=== PATIENT | female | born 1980 ===

== ENCOUNTER 2019-01-22 18:27 | Observation (INO) ==
[2019-01-22] MEDS ORDERED: Piperacillin/Tazobactam 3.375 GM in 0.9 % Sodium Chloride Mini Bag 100 ML IVPB ONE (19:46)
[2019-01-22] MEDS ORDERED: Tdap (Boostrix) Vaccine 0.5 ML SYRINGE IM ONE (19:58)
[2019-01-22 20:25] LABS: Basophils % 0.3 %; Eosinophils # 0.2 K/mcL (0.0-0.6); Eosinophils % 1.2 %; Hematocrit 38.6 % (35.3-44.9); Hemoglobin 12.4 g/dL (11.5-15.4); Immature Granulocytes % 0.2 % (0-4); Lymphocytes # 3.1 K/mcL (0.6-4.6); Mean Corpuscular HGB Conc 32.1 g/dL (31.6-35.5); Mean Corpuscular Hemoglobin 28.2 pg (28.0-33.3); Mean Corpuscular Volume 87.7 fL (83.0-100.0); Mean Platelet Volume 9.7 fL (9.4-12.4); Monocytes # 0.7 K/mcL (0.0-1.3); Monocytes % 5.6 %; Neutrophils # 8.4 K/mcL (1.6-8.9); Platelet Count 464 K/mcL (140-400); Segmented Neutrophils % 67.7 %; White Blood Count 12.4 K/mcL (4.3-11.1)
[2019-01-22 20:43] LABS: BUN/Creatinine Ratio 16 (6-26); Blood Urea Nitrogen 11 mg/dL (6-20); C-Reactive Protein 44 mg/L (Less than 10); Calcium 9.3 mg/dL (8.6-10.3); Carbon Dioxide 25 mEq/L (23-29); Chloride 107 mEq/L (98-107); Glucose 61 mg/dL (70-105); Osmolality,Calculated 287 (280-300); Potassium 3.2 mEq/L (3.5-5.1); Sodium 140 mEq/L (136-145); eGFR For African Americans > 60 (> 60); eGFR For Non-African Americans > 60 (> 60)
[2019-01-22] MEDS ORDERED: Naloxone 0.4 MG/ML INJ IVP PRN (22:44)
[2019-01-22] MEDS ORDERED: Ringers Solution, Lactated 1,000 ML IVC SCH (22:45)
[2019-01-22] MEDS ORDERED: Potassium Chloride Elixir 20 MEQ/15 ML UDC PO ONE (22:52)
[2019-01-22] MEDS ORDERED: Nicotine 14 MG PATCH.TD24 TD SCH (23:00)
[2019-01-22 23:15] LABS: Estimated Average Glucose 123 mg/dl
[2019-01-23 07:48] LABS: INR 0.9; Prothrombin Time 10.6 Seconds (9.4-12.1)
[2019-01-23 07:53] LABS: Basophils % 0.4 %; Eosinophils # 0.2 K/mcL (0.0-0.6); Eosinophils % 2.4 %; Hematocrit 32.9 % (35.3-44.9); Immature Granulocytes % 0.2 % (0-4); Lymphocytes # 3.6 K/mcL (0.6-4.6); Lymphocytes % 39.1 %; Mean Corpuscular HGB Conc 32.2 g/dL (31.6-35.5); Mean Corpuscular Hemoglobin 28.2 pg (28.0-33.3); Mean Corpuscular Volume 87.5 fL (83.0-100.0); Mean Platelet Volume 10.4 fL (9.4-12.4); Monocytes # 0.5 K/mcL (0.0-1.3); Neutrophils # 4.8 K/mcL (1.6-8.9); Platelet Count 424 K/mcL (140-400); Red Blood Count 3.76 M/mcL (3.82-4.97); Red Cell Distribution Width 17.2 % (11.5-14.5); Segmented Neutrophils % 52.9 %; White Blood Count 9.2 K/mcL (4.3-11.1)
[2019-01-23 07:59] LABS: BUN/Creatinine Ratio 16 (6-26); Blood Urea Nitrogen 11 mg/dL (6-20); Calcium 8.8 mg/dL (8.6-10.3); Carbon Dioxide 23 mEq/L (23-29); Chloride 110 mEq/L (98-107); Glucose 80 mg/dL (70-105); Magnesium 1.6 mg/dL (1.6-2.6); Osmolality,Calculated 288 (280-300); Potassium 3.7 mEq/L (3.5-5.1); Sodium 140 mEq/L (136-145); eGFR For African Americans > 60 (> 60); eGFR For Non-African Americans > 60 (> 60)
[2019-01-23 08:04] LABS: Hemoglobin 10.6 g/dL (11.5-15.4)
[2019-01-23] MEDS ORDERED: *HR* HYDROmorphone (PF) 1 MG/ML SYRINGE IVP ONE (08:29)
[2019-01-23] MEDS: Piperacillin/Tazobactam 3.375 GM in 0.9 % Sodium Chloride Mini Bag 100 ML IVPB SCH ×3 (08:46→23:12)
[2019-01-23] MEDS ORDERED: Ringers Solution, Lactated 1,000 ML IVC SCH (09:45)
[2019-01-23] MEDS ORDERED: *HR* OxyCODONE/APAP 5/325 TABLET PO SCH (10:00)
[2019-01-23] MEDS ORDERED: Ketorolac 30 MG/ML VIAL IVP SCH (13:00)
[2019-01-23 13:34] LABS: Amphetamine Screen,Urine Negative ng/mL (Cutoff=1000); Barbiturate Screen,Urine Negative ng/mL (Cutoff=200); Benzodiazepines Screen,Urine Positive ng/mL (Cutoff=200); Cannabinoid Screen,Urine Negative ng/mL (Cutoff = 50); Cocaine Screen,Urine Negative ng/mL (Cutoff= 300); Opiate Screen,Urine Positive ng/mL (Cutoff=300); Phencyclidine Screen,Urine Negative ng/mL (Cutoff=25)
[2019-01-23] MEDS ORDERED: *HR* OxyCODONE Immed Rel 5 MG TABLET PO PRN (16:37)
[2019-01-23] MEDS ORDERED: Ondansetron 4 MG/2 ML VIAL IVP ONE ×2 (16:37→18:43)
[2019-01-23] MEDS ORDERED: *HR* HYDROmorphone (PF) 1 MG/ML SYRINGE IVP PRN ×2 (16:37→18:43)
[2019-01-23] MEDS ORDERED: Albuterol 2.5 MG/3 ML NEBULIZER IH ONE (16:38)
[2019-01-23] MEDS ORDERED: Albuterol 2.5 MG/3 ML NEBULIZER ONE (16:42)
[2019-01-23] MEDS ORDERED: *HR* FentaNYL (PF) 100 MCG/2 ML VIAL ONE (16:46)
[2019-01-23] MEDS ORDERED: *HR* Midazolam HCl 2 MG/2 ML VIAL ONE (16:46)
[2019-01-23] MEDS ORDERED: *HR* Propofol 200 MG/20 ML VIAL IVP ONE (16:46)
[2019-01-23] MEDS ORDERED: Ondansetron 4 MG/2 ML VIAL ONE (16:49)
[2019-01-23] MEDS ORDERED: Lidocaine -MPF 2% 2 ML VIAL ONE (16:49)
[2019-01-23] MEDS ORDERED: Vancomycin 1,000 MG VIAL ONE (17:24)
[2019-01-23] MEDS ORDERED: Dexamethasone 4 MG/ML VIAL ONE (17:36)
[2019-01-23] MEDS ORDERED: Ketorolac 30 MG/ML VIAL ONE (17:54)
[2019-01-23] MEDS ORDERED: Naloxone 0.4 MG/ML INJ IVP PRN (18:43)
[2019-01-23] MEDS ORDERED: *HR* Heparin 5,000 UNIT/ML VIAL SQ SCH (21:00)
[2019-01-23] MEDS: *HR* Heparin 5,000 UNIT/ML VIAL SQ SCH ×2 (21:29→21:31)
[2019-01-23] MEDS: Ketorolac 30 MG/ML VIAL IVP SCH (21:29)
[2019-01-23] MEDS: Nicotine 14 MG PATCH.TD24 TD SCH (23:14)
[2019-01-24] MEDS ORDERED: Ketorolac 30 MG/ML VIAL IVP SCH
[2019-01-24] MEDS ORDERED: Acetaminophen IV 500 MG/50 ML INFUS..BTL IVPB ONE (01:26)
[2019-01-24] MEDS: Ketorolac 30 MG/ML VIAL IVP SCH ×4 (03:44→20:07)
[2019-01-24 04:44] LABS: Basophils % 0.1 %; Hematocrit 31.9 % (35.3-44.9); Hemoglobin 10.3 g/dL (11.5-15.4); Immature Granulocytes % 0.4 % (0-4); Lymphocytes # 1.2 K/mcL (0.6-4.6); Lymphocytes % 10.1 %; Mean Corpuscular HGB Conc 32.3 g/dL (31.6-35.5); Mean Corpuscular Hemoglobin 28.3 pg (28.0-33.3); Mean Corpuscular Volume 87.6 fL (83.0-100.0); Mean Platelet Volume 10.4 fL (9.4-12.4); Monocytes # 0.4 K/mcL (0.0-1.3); Neutrophils # 10.2 K/mcL (1.6-8.9); Platelet Count 411 K/mcL (140-400); Red Blood Count 3.64 M/mcL (3.82-4.97); Red Cell Distribution Width 16.4 % (11.5-14.5); Segmented Neutrophils % 86.4 %; White Blood Count 11.8 K/mcL (4.3-11.1)
[2019-01-24] MEDS: *HR* Heparin 5,000 UNIT/ML VIAL SQ SCH ×3 (04:57→20:07)
[2019-01-24 05:04] LABS: BUN/Creatinine Ratio 15 (6-26); Blood Urea Nitrogen 8 mg/dL (6-20); Calcium 8.7 mg/dL (8.6-10.3); Carbon Dioxide 24 mEq/L (23-29); Chloride 109 mEq/L (98-107); Glucose 153 mg/dL (70-105); Osmolality,Calculated 289 (280-300); Potassium 3.7 mEq/L (3.5-5.1); Sodium 139 mEq/L (136-145); eGFR For African Americans > 60 (> 60); eGFR For Non-African Americans > 60 (> 60)
[2019-01-24] MEDS: Piperacillin/Tazobactam 3.375 GM in 0.9 % Sodium Chloride Mini Bag 100 ML IVPB SCH ×3 (08:48→23:38)
[2019-01-24] MEDS: Ringers Solution, Lactated 1,000 ML IVC SCH ×2 (10:27→23:39)
[2019-01-24] MEDS: Nicotine 14 MG PATCH.TD24 TD SCH (23:38)
[2019-01-25] MEDS: Ketorolac 30 MG/ML VIAL IVP SCH ×2 (02:33→09:34)
[2019-01-25 04:24] LABS: Basophils # 0.1 K/mcL (0.0-0.2); Basophils % 0.5 %; Eosinophils # 0.2 K/mcL (0.0-0.6); Hemoglobin 10.7 g/dL (11.5-15.4); Immature Granulocytes % 0.3 % (0-4); Lymphocytes # 5.2 K/mcL (0.6-4.6); Lymphocytes % 46.9 %; Mean Corpuscular HGB Conc 32.4 g/dL (31.6-35.5); Mean Corpuscular Hemoglobin 28.4 pg (28.0-33.3); Mean Corpuscular Volume 87.5 fL (83.0-100.0); Mean Platelet Volume 9.6 fL (9.4-12.4); Monocytes # 0.4 K/mcL (0.0-1.3); Monocytes % 3.7 %; Neutrophils # 5.2 K/mcL (1.6-8.9); Platelet Count 383 K/mcL (140-400); Red Blood Count 3.77 M/mcL (3.82-4.97); Red Cell Distribution Width 16.8 % (11.5-14.5); Segmented Neutrophils % 46.6 %
[2019-01-25 04:44] LABS: BUN/Creatinine Ratio 15 (6-26); Blood Urea Nitrogen 11 mg/dL (6-20); Calcium 8.6 mg/dL (8.6-10.3); Carbon Dioxide 24 mEq/L (23-29); Chloride 105 mEq/L (98-107); Glucose 93 mg/dL (70-105); Osmolality,Calculated 289 (280-300); Potassium 3.6 mEq/L (3.5-5.1); Sodium 140 mEq/L (136-145); eGFR For African Americans > 60 (> 60); eGFR For Non-African Americans > 60 (> 60)
[2019-01-25] MEDS: *HR* Heparin 5,000 UNIT/ML VIAL SQ SCH (05:32)
[2019-01-25 06:29] VITALS: BP 131/79
[2019-01-25] MEDS: Piperacillin/Tazobactam 3.375 GM in 0.9 % Sodium Chloride Mini Bag 100 ML IVPB SCH (08:13)
[2019-01-25] MEDS ORDERED: Aminoglycoside Consult 1 EACH MC ONE (14:09)
[2019-01-25] MEDS ORDERED: metroNIDAZOLE 500 MG TABLET PO SCH (15:00)
== END 2019-01-25 14:10 | disposition home or self-care (01) ==
LOC: 3NENU 18:27 → EMEROOARM 18:27 → SUATTDRO 20:34 → 3NENU 20:56
PROVIDERS: ADMIT Family Medicine; ATTEND Internal Medicine

== ENCOUNTER 2019-04-09 13:29 | Inpatient (IN) ==
[2019-04-09] MEDS ORDERED: Morphine Sulfate 2 MG/ML SYRINGE IVP ONE (17:43)
[2019-04-09 18:25] LABS: Hematocrit 33.8 % (35.3-44.9); Hemoglobin 11.4 g/dL (11.5-15.4); Mean Corpuscular HGB Conc 33.7 g/dL (31.6-35.5); Mean Platelet Volume 9.9 fL (9.4-12.4); Platelet Count 366 K/mcL (140-400); Red Blood Count 4.07 M/mcL (3.82-4.97); Red Cell Distribution Width 16.8 % (11.5-14.5)
[2019-04-09 18:42] LABS: BUN/Creatinine Ratio 25 (6-26); Blood Urea Nitrogen 19 mg/dL (6-20); Calcium 8.8 mg/dL (8.6-10.3); Carbon Dioxide 25 mEq/L (23-29); Chloride 103 mEq/L (98-107); Glucose 107 mg/dL (70-105); Osmolality,Calculated 283 (280-300); Potassium 3.3 mEq/L (3.5-5.1); Sodium 135 mEq/L (136-145); eGFR For African Americans > 60 (> 60); eGFR For Non-African Americans > 60 (> 60)
[2019-04-09] MEDS: Morphine Sulfate 2 MG/ML SYRINGE IVP PRN (22:57)
[2019-04-09] MEDS ORDERED: Naloxone 0.4 MG/ML INJ IVP PRN (23:02)
[2019-04-09] MEDS ORDERED: Ondansetron ODT 4 MG TAB.RAPDIS SL PRN (23:02)
[2019-04-10] MEDS: Acetaminophen 325 MG TABLET PO PRN ×2 (01:28→23:58)
[2019-04-10] MEDS: Morphine Sulfate 2 MG/ML SYRINGE IVP PRN ×6 (02:25→22:10)
[2019-04-10] MEDS: Ketorolac 30 MG/ML VIAL IVP PRN ×2 (04:57→11:10)
[2019-04-10 06:07] LABS: Basophils % 0.2 %; Eosinophils # 0.1 K/mcL (0.0-0.6); Eosinophils % 0.8 %; Hematocrit 30.9 % (35.3-44.9); Hemoglobin 10.6 g/dL (11.5-15.4); Immature Granulocytes % 0.4 % (0-4); Lymphocytes % 15.5 %; Mean Corpuscular HGB Conc 34.3 g/dL (31.6-35.5); Mean Corpuscular Hemoglobin 28.3 pg (28.0-33.3); Mean Corpuscular Volume 82.6 fL (83.0-100.0); Mean Platelet Volume 10.5 fL (9.4-12.4); Monocytes % 7.4 %; Neutrophils # 9.9 K/mcL (1.6-8.9); Platelet Count 341 K/mcL (140-400); Red Blood Count 3.74 M/mcL (3.82-4.97); Red Cell Distribution Width 17.1 % (11.5-14.5); Segmented Neutrophils % 75.7 %; White Blood Count 13.1 K/mcL (4.3-11.1)
[2019-04-10 06:56] LABS: BUN/Creatinine Ratio 24 (6-26); Blood Urea Nitrogen 16 mg/dL (6-20); Calcium 8.4 mg/dL (8.6-10.3); Carbon Dioxide 18 mEq/L (23-29); Chloride 105 mEq/L (98-107); Glucose 95 mg/dL (70-105); Osmolality,Calculated 289 (280-300); Potassium 3.9 mEq/L (3.5-5.1); Sodium 139 mEq/L (136-145); eGFR For African Americans > 60 (> 60); eGFR For Non-African Americans > 60 (> 60)
[2019-04-10] MEDS: *HR* Heparin 5,000 UNIT/ML VIAL SQ SCH ×2 (15:14→22:01)
[2019-04-11 02:08] LABS: Basophils % 0.2 %; Eosinophils % 0.2 %; Hematocrit 30.1 % (35.3-44.9); Hemoglobin 10.3 g/dL (11.5-15.4); Immature Granulocytes % 0.3 % (0-4); Mean Corpuscular HGB Conc 34.2 g/dL (31.6-35.5); Mean Corpuscular Hemoglobin 28.8 pg (28.0-33.3); Mean Corpuscular Volume 84.1 fL (83.0-100.0); Monocytes # 0.4 K/mcL (0.0-1.3); Monocytes % 3.7 %; Platelet Count 374 K/mcL (140-400); Red Blood Count 3.58 M/mcL (3.82-4.97); Red Cell Distribution Width 17.2 % (11.5-14.5); Segmented Neutrophils % 86.6 %; White Blood Count 11.6 K/mcL (4.3-11.1)
[2019-04-11 02:30] LABS: BUN/Creatinine Ratio 19 (6-26); Blood Urea Nitrogen 12 mg/dL (6-20); Calcium 8.4 mg/dL (8.6-10.3); Carbon Dioxide 25 mEq/L (23-29); Chloride 104 mEq/L (98-107); Glucose 163 mg/dL (70-105); Osmolality,Calculated 289 (280-300); Potassium 3.6 mEq/L (3.5-5.1); Sodium 138 mEq/L (136-145); eGFR For African Americans > 60 (> 60); eGFR For Non-African Americans > 60 (> 60)
[2019-04-11] MEDS: Morphine Sulfate 2 MG/ML SYRINGE IVP PRN ×2 (02:59→19:00)
[2019-04-11] MEDS: *HR* Heparin 5,000 UNIT/ML VIAL SQ SCH ×3 (06:09→21:05)
[2019-04-11] MEDS: Ketorolac 30 MG/ML VIAL IVP PRN ×2 (06:13→13:14)
[2019-04-11] MEDS: Acetaminophen 325 MG TABLET PO PRN ×2 (07:01→16:05)
[2019-04-11] MEDS ORDERED: Aminoglycoside Consult 1 EACH MC ONE (11:52)
[2019-04-12] MEDS: Morphine Sulfate 2 MG/ML SYRINGE IVP PRN ×3 (00:47→09:24)
[2019-04-12 01:55] LABS: Basophils % 0.2 %; Eosinophils # 0.1 K/mcL (0.0-0.6); Eosinophils % 0.8 %; Hematocrit 33.5 % (35.3-44.9); Hemoglobin 10.9 g/dL (11.5-15.4); Immature Granulocytes % 0.3 % (0-4); Lymphocytes # 1.1 K/mcL (0.6-4.6); Lymphocytes % 11.7 %; Mean Corpuscular HGB Conc 32.5 g/dL (31.6-35.5); Mean Corpuscular Hemoglobin 28.1 pg (28.0-33.3); Mean Corpuscular Volume 86.3 fL (83.0-100.0); Mean Platelet Volume 10.8 fL (9.4-12.4); Monocytes # 0.5 K/mcL (0.0-1.3); Monocytes % 5.8 %; Neutrophils # 7.3 K/mcL (1.6-8.9); Platelet Count 309 K/mcL (140-400); Red Blood Count 3.88 M/mcL (3.82-4.97); Red Cell Distribution Width 17.5 % (11.5-14.5); Segmented Neutrophils % 81.2 %
[2019-04-12 01:57] LABS: BUN/Creatinine Ratio 18 (6-26); Blood Urea Nitrogen 9 mg/dL (6-20); Calcium 8.6 mg/dL (8.6-10.3); Carbon Dioxide 26 mEq/L (23-29); Chloride 108 mEq/L (98-107); Glucose 114 mg/dL (70-105); Osmolality,Calculated 284 (280-300); Potassium 3.6 mEq/L (3.5-5.1); Sodium 137 mEq/L (136-145); eGFR For African Americans > 60 (> 60); eGFR For Non-African Americans > 60 (> 60)
[2019-04-12] MEDS: *HR* Heparin 5,000 UNIT/ML VIAL SQ SCH (05:34)
[2019-04-12] MEDS: Ketorolac 30 MG/ML VIAL IVP PRN (07:52)
[2019-04-12 10:53] VITALS: BP 126/76
== END 2019-04-12 11:53 | disposition home or self-care (01) | DRG 383 ==
LOC: 3NENU 13:29 → EMEROOARM 13:29 → SUATTDRO 20:01 → 3NENU 21:41
PROVIDERS: ADMIT Internal Medicine; ATTEND Family Medicine